=== PATIENT | male | born 1935 | race Caucasian/White ===

== ENCOUNTER → 2016-09-26 | Outpatient (CLI) | payer BC ==
[~2016-09-26] MED LIST: AMLO-110 PO; ASCA500 PO; ASPI325T45 PO; Amlodipine PO; CHOL1000 PO; CLON0.1T12 PO; COENCAP9 PO; Clonidine PO; Fish Oil PO; GABA-112 PO; LISI20TA3 PO; Lisinopril PO; PRAV20TA PO; PRED-301 PO; SULF500T35 PO; Vitamin C PO; Vitamin D PO
--- NOTE | 2016-09-26 12:12 | DIAGNOSTIC IMAGING REPORT ---
C-SPINE ROUTINE 4 OR 5 VIEWS CLINICAL HISTORY: Neck pain. Ankylosing spondylitis. COMPARISON STUDY: No previous studies for comparison. FINDINGS: There is reversal the normal cervical lordosis. There are extensive multilevel degenerative changes with disc space narrowing at the C3-4 through C6-7 levels. There is uncovertebral joint spurring with bilateral foraminal narrowing at the C3-4 through C6-7 levels on the right, and C4-5 through C6-7 levels on the left. No acute fractures are visualized. There are no traumatic subluxations identified. IMPRESSION: Advanced multilevel degenerative changes. Electronically signed by: Luis Vick M.D. 09/26/2016 12:11 PM Dictated Date/Time: 09/26/2016 12:10 PM
== END | disposition home or self-care (01) ==
LOC: C.RAD1850 11:38
PROVIDERS: ATTEND Internal Medicine Rheumatology
DX: M45.9 Ankylosing spondylitis of unspecified sites in spine (principal)

== ENCOUNTER → 2016-09-26 | Outpatient (CLI) | payer BC ==
--- NOTE | 2016-09-26 11:34 | DIAGNOSTIC IMAGING REPORT ---
MRI CERVICAL WITHOUT CONTRAST CLINICAL HISTORY: ANKYLOSING SPONDYLITIS SHOULDER PAIN TECHNIQUE: Sagittal and axial T1, T2 and STIR images were obtained. COMPARISON STUDY: 02/24/2012 There are no suspicious areas of marrow replacement. No intrinsic cervical cord lesions are visualized. C2-3: There is no evidence of disc bulge or focal herniation. There is no spinal or foraminal stenosis. C3-4: There is a minor circumferential disc bulge present. There is no significant spinal stenosis. There is mild bilateral foraminal narrowing C4-5: There is a circumferential disc bulge present. There is mild bilateral foraminal narrowing right more severe than left. There is minimal spinal canal narrowing C5-6 :There is a diffuse or compressive disc bulge. There is bilateral foraminal narrowing. There is no significant spinal stenosis. C6-7: There is right-sided uncovertebral joint spurring with subjacent disc protrusion. There is no significant spinal stenosis. There is minor right-sided foraminal narrowing C7-T1: There is no evidence of significant disc bulge or focal herniation. There is no evidence of spinal or foraminal stenosis. IMPRESSION:Multilevel spondylitic changes as described above. Bilateral foraminal narrowing at the C3-4, C4-5, C5-6 levels. Mild right-sided foraminal narrowing at the C6-7 level. Mild spinal stenosis at the C4-5 level. Electronically signed by: Luis Vick M.D. 09/26/2016 11:32 AM Dictated Date/Time: 09/26/2016 11:26 AM
== END | disposition home or self-care (01) ==
LOC: C.MRI 10:39
PROVIDERS: ATTEND Internal Medicine Rheumatology
DX: M45.2 Ankylosing spondylitis of cervical region (principal); M79.603 Pain in arm, unspecified; Z79.899 Other long term (current) drug therapy

== ENCOUNTER → 2017-02-18 | Day surgery (SDC) | payer BC ==
[2017-01-30 12:10] VITALS: Ht 162.6 cm; Wt 68.2 kg
[~2017-02-18] VITALS: Ht 162.6 cm; Wt 68.2 kg
[~2017-02-18] MED LIST changes: -Amlodipine PO; -Clonidine PO; -Fish Oil PO; +IOPAMIDOL INJ 61% 15 ML VIAL ONE; +LIDOCAINE HCL 1% MPF 5 ML VIAL ONE; -Lisinopril PO; +SODIUM CHLORIDE 0.9% INJ 10 ML VIAL ONE; -Vitamin C PO; -Vitamin D PO
--- NOTE | 2017-02-18 10:40 | History & Physical Bridge - SC ---
H&P Re-Evaluation Bridge Note: I have examined the patient, reviewed the History & Physical and in the interval since the performance of the History & Physical I have noted the following changes of clinical significance: No changes noted
[2017-02-18 11:04] VITALS: TEMP 37.2
--- NOTE | 2017-02-18 11:10 | Discharge Instructions ---
Discharge Instructions Date of Service February 18, 2017. Visit Reason for Visit: Lumbar Spinal Stenosis Discharge Discharge Diagnosis / Problem: right leg pain Discharge Goals Goal(s): Decrease discomfort, Improve function Medications Stopped Medications Name(s): aspirin stopped. last dose on thursday. Activity Recommendations Activity Limitations: resume your previous activity Anesthesia . Post Anesthesia Instructions: If you have had General Anesthesia or IV Sedation: * Do not drive today. * Resume driving when surgeon permits. * Do not make important decisions or sign legal documents today. * Call surgeon for: 1. Temperature elevations greater than 101 degrees F. 2. Uncontrollable pain. 3. Excessive bleeding. 4. Persistent nausea and vomiting. 5. Medication intolerance (nausea, vomiting or rash). * For nausea and vomiting use only clear liquids such as: tea, soda, bouillon until nausea subsides, then gradually increase diet as tolerated. * If you have any concerns or questions, call your surgeon's office. If physician is unavailable and it is an emergency, call 911 or go to the nearest emergency room. . Diet Recommendations Recommended Home Diet: resume previous diet Procedures Procedures Performed: Lumbar Epidural Steroid Injection Pending Studies Studies pending at discharge: no Medical Emergencies . Who to Call and When: Medical Emergencies: If at any time you feel your situation is an emergency, please call 911 immediately. . Non-Emergent Contact Non-Emergency issues call your: Specialist . . "Provider Documentation" section prepared by Martin Greenwood. .
[2017-02-18 11:20] VITALS: BP 184/74; PULSE 60; O2SAT 99
--- NOTE | 2017-02-18 12:14 | OPERATIVE REPORT ---
DATE OF OPERATION: 02/18/2017 PREOPERATIVE DIAGNOSIS: Lumbar spinal stenosis with neurogenic claudication, right L5 radiculopathy greater than left. POSTOPERATIVE DIAGNOSIS: Same. PROCEDURE: Right paramedian L4-L5 interlaminar epidural steroid injection under fluoroscopic guidance. INDICATIONS: The patient is an 82-year-old white male who is known to have severe stenosis at L4-L5 and he presents today for an epidural injection to provide him with relief of recent exacerbation of an L5 radiculopathy down the right leg. CONSENT: Verbal and written consent was obtained from the patient. Risks and benefits were reviewed. Risks include but are not limited to epidural abscess, epidural hematoma, allergic reaction, dural puncture. The patient wishes to proceed. PROCEDURE: The patient was taken back to the special procedures room of the [facility] where he was maintained in a prone position. Backside was cleansed with Betadine x3 and a dry sterile dressing was applied. Fluoroscope was used to identify the L4-L5 interlaminar space. Overlying skin on the right side was anesthetized with 4 mL of lidocaine 1% with a 25 gauge 1.5 inch needle. A 22-gauge 3-1/2 inch Tuohy needle was then directed down towards the intralaminar space. It was advanced under lateral fluoroscopic guidance and loss of resistance was noted at a depth of 6.5 cm. Isovue-300 contrast 1 mL was injected in which demonstrated epidural uptake pattern which spread nicely into the L5-S1 region. He then underwent injection after negative aspiration of 40 mg of Depo-Medrol and 4 mL preservative free sodium chloride. Injection was well tolerated. DISPOSITION: 1. The patient is taken out into the discharge recovery area where he will be discharged home once discharge criteria have been met. 2. Follow up in the [facility] office in 2-4 weeks. I attest to the content of the Intraoperative Record and any orders documented therein. Any exceptio ns are noted below.
== END | disposition home or self-care (01) ==
LOC: X.SURG 09:53
PROVIDERS: ATTEND Physical Medicine & Rehabilitation
DX: M48.06 Spinal stenosis, lumbar region (principal); I73.9 Peripheral vascular disease, unspecified

== ENCOUNTER → 2017-03-13 | Outpatient (CLI) | payer BC ==
[~2017-03-13] MED LIST changes: -IOPAMIDOL INJ 61% 15 ML VIAL ONE; -LIDOCAINE HCL 1% MPF 5 ML VIAL ONE; -SODIUM CHLORIDE 0.9% INJ 10 ML VIAL ONE
--- NOTE | 2017-03-13 15:31 | DIAGNOSTIC IMAGING REPORT ---
LUMBAR SPINE 2 OR 3 VIEWS CLINICAL HISTORY: LUMBAR RADICULOPATHY COMPARISON STUDY: December 27, 2015 FINDINGS: There is a mild scoliosis. There are multilevel degenerative changes present. No acute fractures are visualized. There is a minimal grade 1 spondylolisthesis of L4 and L5. There is no pathologic bowel dilatation. There is mild fecal retention. There are vascular calcifications present. IMPRESSION: Scoliosis and moderate multilevel degenerative change. No acute fractures or traumatic subluxations are visualized. Electronically signed by: Luis Vick M.D. 03/13/2017 3:29 PM Dictated Date/Time: 03/13/2017 3:28 PM
== END ==
LOC: C.RDSM 15:15
PROVIDERS: ATTEND Orthopaedic Surgery
DX: M48.06 Spinal stenosis, lumbar region (principal); M54.16 Radiculopathy, lumbar region; M41.9 Scoliosis, unspecified; M51.36 Other intervertebral disc degeneration, lumbar region

== ENCOUNTER → 2017-03-19 | Outpatient (CLI) | payer BC ==
[2017-03-19 17:38] LABS: BASO % 0.4 %; BASO ABS # 0.03 K/uL (0-0.2); COMPLETE YES; EOS % 0.4 %; HEMATOCRIT 43.2 % (42-52); IG% 0.1 %; LYMPH % 19.5 %; LYMPH ABS # 1.44 K/uL (1.2-3.4); MEAN CELL VOLUME 95.4 fL (80-100); MEAN CORPUSCULAR HGB CONC 33.6 g/dl (32-36); MONO % 7.7 %; NEUT % 71.9 %; PLATELET COUNT 255 K/uL (130-400); RED BLOOD COUNT 4.53 M/uL (4.7-6.1); WHITE BLOOD COUNT 7.39 K/uL (4.8-10.8)
[2017-03-19 19:02] LABS: ALT/SGPT 35 U/L (12-78); AST/SGOT 17 U/L (15-37)
[2017-03-19 19:06] LABS: ALKALINE PHOSPHATASE 48 U/L (45-117)
== END | disposition home or self-care (01) ==
LOC: C.LABBFT 11:22
PROVIDERS: ATTEND Internal Medicine Rheumatology
DX: M45.9 Ankylosing spondylitis of unspecified sites in spine (principal); Z79.899 Other long term (current) drug therapy

== ENCOUNTER → 2017-03-20 | Outpatient (CLI) | payer BC ==
--- NOTE | 2017-03-20 11:36 | DIAGNOSTIC IMAGING REPORT ---
LUMBAR SPINE MRI HISTORY: Pain LUMBAR RADICULOPATHY TECHNIQUE: Multiplanar multisequence MRI of the lumbar spine was performed without the use of contrast. COMPARISON: 06/16/2016 FINDINGS: For the purpose of the report the L5-S1 disc space will be located on axial image of 30. Severe degenerative disc changes throughout. Similar as compared to the prior study. L1-L2: No significant central canal or neural foraminal narrowing. L2-L3: Moderate multifactorial narrowing of spinal canal. Broad-based mild disc herniation. Moderate narrowing left neuroforamina. Findings are similar to the prior study. L3-L4: Mild multifactorial narrowing of the spinal canal. Interval development of an extruded disc fragment posterior to the L4 vertebral body. This potentially originates the L4-L5 disc. This occupies the right lateral recess posterior to L4, as transaxial dimensions of 10 x 5 mm, as well as a linear extent of 1.6 cm. A considerable narrowing of the right neuroforamina at L4-L5 is noted impact upon the right anterior aspect of thecal sac posterior to the L4 vertebral body. L4-L5: Broad-based disc herniation with considerable multifactorial narrowing of spinal canal. This is progressive compared to the prior study. The extruded disc fragment again extends posterior to L4 most likely originating from this disc space level. Moderate narrowing left neuroforamina. L5-S1: Mild broad-based disc herniation similar compared to the prior study. Minimal impact with anterior thecal sac. IMPRESSION: 1. Progressive multifactorial spinal stenosis at L4-L5 compared to the prior study. 2. Extruded disc fragment extending from this disc space level posterior to the right lateral aspect of L4 and occupying the right lateral recess. Dimensions are as noted with considerable compromise of the right neuroforamina at L4-L5 as well as right lateral recess posterior to L4. 3. Moderate multifactorial narrowing of the spinal canal and associated neural foramina at L2-L3, L3-L4, similar to the prior exam 4. Considerable degenerative disc change throughout the entire lumbar region similar as compared to the prior study. Electronically signed by: Keven Gerard M.D. 03/20/2017 11:35 AM Dictated Date/Time: 03/20/2017 11:17 AM
== END | disposition home or self-care (01) ==
LOC: C.MRI 10:22
PROVIDERS: ATTEND Orthopaedic Surgery
DX: M48.06 Spinal stenosis, lumbar region (principal); M54.16 Radiculopathy, lumbar region

== ENCOUNTER → 2017-05-15 | Outpatient (CLI) | payer BC ==
--- NOTE | 2017-05-15 11:00 | DIAGNOSTIC IMAGING REPORT ---
LUMBAR SPINE 2 OR 3 VIEWS CLINICAL HISTORY: Status post laminectomy. COMPARISON STUDY: Lumbar spine 03/13/2017. FINDINGS: Interval placement of posterior pedicle screws and rods at L4-L5 secondary to a posterior decompression and fusion. The hardware appears intact. Mild dextroscoliosis of the lumbar spine persist. No fractures. Severe disc space narrowing at L2-L3 and L3-L4 remains unchanged. Stable indeterminate 6 mm calcification adjacent to the left side of the L2-L3 disc space. The sacrum appears intact. Vascular calcifications are noted. There is also moderate disc space narrowing at L5-S1. IMPRESSION: 1. Interval posterior decompression fusion] at L4-L5 with pedicle screws and rods. The hardware is intact. 2. Scoliosis and multilevel degenerative disease as described above is not significantly changed. 3. Nonspecific 6 mm calcification adjacent to the left side of the L2-L3 disc space. This favors vascular calcification. A ureteral stone could also have a similar appearance but is considered less likely. Electronically signed by: Nhan Forrester M.D. 05/15/2017 10:58 AM Dictated Date/Time: 05/15/2017 10:55 AM
== END | disposition home or self-care (01) ==
LOC: C.RDSM 10:15
PROVIDERS: ATTEND Orthopaedic Surgery
DX: Z98.890 Other specified postprocedural states (principal)

== ENCOUNTER → 2017-06-25 | Outpatient (CLI) | payer BC ==
--- NOTE | 2017-06-25 16:12 | DIAGNOSTIC IMAGING REPORT ---
R KNEE 3 VIEWS CLINICAL HISTORY: RIGHT MEDIAL KNEE PAIN COMPARISON STUDY: None. FINDINGS: Mild cartilage space narrowing within the medial and lateral compartment of the knees. No significant knee effusion. Tiny marginal osteophytes at the patella. Vascular calcifications. No fracture or dislocation. IMPRESSION: Mild osteoarthritis. No fractures within the right knee. Electronically signed by: Nhan Forrester M.D. 06/25/2017 4:10 PM Dictated Date/Time: 06/25/2017 4:10 PM
== END | disposition home or self-care (01) ==
LOC: C.RDSM 11:52
PROVIDERS: ATTEND Family Medicine
DX: M25.561 Pain in right knee (principal)

== ENCOUNTER → 2017-07-31 | Outpatient (CLI) | payer BC ==
--- NOTE | 2017-07-31 11:55 | DIAGNOSTIC IMAGING REPORT ---
LUMBAR SPINE 2 OR 3 VIEWS CLINICAL HISTORY: LUMBAR SPINAL STENOSIS pain COMPARISON STUDY: 05/15/2017 FINDINGS: Stable lumbar scoliosis. Stable postoperative changes consistent with laminectomy and fusion at L4-L5. No evidence for new or interval process. The small calcification previously described left lateral L2-L3 appears to be stable and most likely secondary to vascular calcification. IMPRESSION: Stable exam including unchanging degenerative and postoperative change. The above report was generated using voice recognition software. It may contain grammatical, syntax or spelling errors. Electronically signed by: Keven Gerard M.D. 07/31/2017 11:53 AM Dictated Date/Time: 07/31/2017 11:52 AM
== END | disposition home or self-care (01) ==
LOC: C.RDSM 16:43
PROVIDERS: ATTEND Orthopaedic Surgery
DX: M48.061 Spinal stenosis, lumbar region without neurogenic claudication (principal)

== ENCOUNTER → 2017-08-26 | Outpatient (CLI) | payer BC | END | disposition home or self-care (01) | LOC: C.LABBFT 10:29 | PROVIDERS: ATTEND Internal Medicine Rheumatology | DX: M35.3 Polymyalgia rheumatica (principal); M25.511 Pain in right shoulder ==

== ENCOUNTER → 2017-09-02 | Outpatient (CLI) | payer BC | END | disposition home or self-care (01) | LOC: C.LABBFT 14:57 | PROVIDERS: ATTEND Internal Medicine Rheumatology | DX: M35.3 Polymyalgia rheumatica (principal); R20.0 Anesthesia of skin ==

== ENCOUNTER → 2017-09-24 | Outpatient (CLI) | payer BC ==
[2017-09-24 12:35] LABS: BASO % 0.4 %; BASO ABS # 0.03 K/uL (0-0.2); EOS % 1.3 %; HEMATOCRIT 43.5 % (42-52); HEMOGLOBIN 14.6 g/dL (14.0-18.0); IG# 0.01 K/uL (0.00-0.02); LYMPH % 23.9 %; LYMPH ABS # 1.82 K/uL (1.2-3.4); MEAN CELL VOLUME 91.4 fL (80-100); MEAN CORPUSCULAR HEMOGLOBIN 30.7 pg (25-34); MEAN CORPUSCULAR HGB CONC 33.6 g/dl (32-36); MEAN PLATELET VOLUME 9.1 fL (7.4-10.4); MONO ABS # 0.61 K/uL (0.11-0.59); NEUT % 66.3 %; NEUT ABS # 5.03 K/uL (1.4-6.5); PLATELET COUNT 241 K/uL (130-400); RED CELL DISTRIBUTION WIDTH CV 17.7 % (11.5-14.5); RED CELL DISTRIBUTION WIDTH SD 59.9 fL (36.4-46.3)
[2017-09-24 13:35] LABS: ALBUMIN 3.4 gm/dl (3.4-5.0); ALT/SGPT 27 U/L (12-78); AST/SGOT 11 U/L (15-37); BLOOD UREA NITROGEN 28 mg/dl (7-18); CALCIUM 8.9 mg/dl (8.5-10.1); CARBON DIOXIDE 29 mmol/L (21-32); CREATININE 1.29 mg/dl (0.60-1.40); GLUCOSE 99 mg/dl (70-99); POTASSIUM 4.1 mmol/L (3.5-5.1); SODIUM 137 mmol/L (136-145)
[2017-09-24 13:38] LABS: ALKALINE PHOSPHATASE 47 U/L (45-117); CHOLESTEROL 149 mg/dl (0-200); LDL CHOLESTEROL CALCULATED 58 mg/dl; TOTAL PROTEIN 6.6 gm/dl (6.4-8.2)
== END | disposition home or self-care (01) ==
LOC: C.LABBFT 07:33
PROVIDERS: ATTEND Internal Medicine
DX: I10 Essential (primary) hypertension (principal); M45.9 Ankylosing spondylitis of unspecified sites in spine; M35.3 Polymyalgia rheumatica; G56.02 Carpal tunnel syndrome, left upper limb; R73.01 Impaired fasting glucose; E78.5 Hyperlipidemia, unspecified

== ENCOUNTER → 2017-10-06 | Outpatient (CLI) | payer BC ==
[2017-10-06 16:48] LABS: BASO % 0.2 %; BASO ABS # 0.02 K/uL (0-0.2); HEMATOCRIT 41.7 % (42-52); HEMOGLOBIN 14.2 g/dL (14.0-18.0); IG# 0.02 K/uL (0.00-0.02); LYMPH % 13.4 %; LYMPH ABS # 1.24 K/uL (1.2-3.4); MEAN CELL VOLUME 91.2 fL (80-100); MEAN CORPUSCULAR HEMOGLOBIN 31.1 pg (25-34); MEAN CORPUSCULAR HGB CONC 34.1 g/dl (32-36); MEAN PLATELET VOLUME 9.1 fL (7.4-10.4); MONO % 8.1 %; MONO ABS # 0.75 K/uL (0.11-0.59); NEUT % 78.1 %; NEUT ABS # 7.25 K/uL (1.4-6.5); PLATELET COUNT 278 K/uL (130-400); RED CELL DISTRIBUTION WIDTH CV 16.7 % (11.5-14.5); RED CELL DISTRIBUTION WIDTH SD 55.7 fL (36.4-46.3); WHITE BLOOD COUNT 9.28 K/uL (4.8-10.8)
[2017-10-06 17:19] LABS: ALBUMIN 3.7 gm/dl (3.4-5.0); ALKALINE PHOSPHATASE 55 U/L (45-117); ALT/SGPT 39 U/L (12-78); AST/SGOT 22 U/L (15-37); CREATININE 1.78 mg/dl (0.60-1.40); TOTAL PROTEIN 6.7 gm/dl (6.4-8.2)
== END | disposition home or self-care (01) ==
LOC: C.LABBFT 14:48
PROVIDERS: ATTEND Internal Medicine Rheumatology
DX: M45.9 Ankylosing spondylitis of unspecified sites in spine (principal); G56.02 Carpal tunnel syndrome, left upper limb; M35.3 Polymyalgia rheumatica

== ENCOUNTER → 2017-12-07 | Outpatient (CLI) | payer BC ==
[2017-12-07 16:50] LABS: BASO % 0.3 %; BASO ABS # 0.03 K/uL (0-0.2); EOS % 0.1 %; EOS ABS # 0.01 K/uL (0-0.5); HEMOGLOBIN 14.1 g/dL (14.0-18.0); IG# 0.04 K/uL (0.00-0.02); LYMPH % 16.3 %; LYMPH ABS # 1.62 K/uL (1.2-3.4); MEAN CELL VOLUME 96.1 fL (80-100); MEAN CORPUSCULAR HEMOGLOBIN 32.3 pg (25-34); MEAN CORPUSCULAR HGB CONC 33.6 g/dl (32-36); MEAN PLATELET VOLUME 9.1 fL (7.4-10.4); MONO % 6.1 %; MONO ABS # 0.61 K/uL (0.11-0.59); NEUT % 76.8 %; NEUT ABS # 7.62 K/uL (1.4-6.5); PLATELET COUNT 270 K/uL (130-400); RED CELL DISTRIBUTION WIDTH SD 49.8 fL (36.4-46.3); WHITE BLOOD COUNT 9.93 K/uL (4.8-10.8)
[2017-12-07 17:05] LABS: ALBUMIN 3.4 gm/dl (3.4-5.0); ALT/SGPT 26 U/L (12-78); CREATININE 1.47 mg/dl (0.60-1.40)
[2017-12-07 17:08] LABS: ALKALINE PHOSPHATASE 51 U/L (45-117); AST/SGOT 19 U/L (15-37); TOTAL PROTEIN 6.2 gm/dl (6.4-8.2)
== END | disposition home or self-care (01) ==
LOC: C.LABBFT 13:25
PROVIDERS: ATTEND Internal Medicine Rheumatology
DX: M25.50 Pain in unspecified joint (principal); M45.9 Ankylosing spondylitis of unspecified sites in spine; M35.3 Polymyalgia rheumatica

== ENCOUNTER → 2017-12-11 | Outpatient (CLI) | payer BC ==
--- NOTE | 2017-12-11 09:45 | DIAGNOSTIC IMAGING REPORT ---
LUMBAR SPINE 2 OR 3 VIEWS CLINICAL HISTORY: Postop lumbar spine surgery. COMPARISON STUDY: 07/31/2017 FINDINGS: There is a mild lumbar dextroscoliosis. There are postsurgical changes of a spinal fusion at the L4-5 level. There are multilevel degenerative changes with moderate disc space narrowing at the L2-3, L3-4, and L5-S1 levels. No acute fractures or subluxations are visualized. There is no pathologic bowel dilatation. IMPRESSION: No significant change from the prior study. Stable degenerative and postsurgical changes Electronically signed by: Luis Vick M.D. 12/11/2017 9:44 AM Dictated Date/Time: 12/11/2017 9:43 AM
== END | disposition home or self-care (01) ==
LOC: C.RDSM 10:28
PROVIDERS: ATTEND Orthopaedic Surgery
DX: Z98.890 Other specified postprocedural states (principal)

== ENCOUNTER → 2018-01-05 | Outpatient (CLI) | payer BC ==
[~2018-01-05] MED LIST changes: +ASPECOTC PO; -ASPI325T45 PO
== END | disposition home or self-care (01) ==
LOC: C.LABBFT 10:18
PROVIDERS: ATTEND Internal Medicine Rheumatology
DX: M45.9 Ankylosing spondylitis of unspecified sites in spine (principal); M35.3 Polymyalgia rheumatica; Z79.899 Other long term (current) drug therapy

== ENCOUNTER → 2018-01-21 | Outpatient (CLI) | payer BC ==
[2018-01-21 12:35] LABS: CREATININE 1.29 mg/dl (0.60-1.40)
== END | disposition home or self-care (01) ==
LOC: C.LABBFT 09:16
PROVIDERS: ATTEND Physical Medicine & Rehabilitation
DX: M54.16 Radiculopathy, lumbar region (principal)

== ENCOUNTER → 2018-01-27 | Outpatient (CLI) | payer BC ==
[~2018-01-27] MED LIST changes: +GADAVIST IV PRN
--- NOTE | 2018-01-27 11:25 | DIAGNOSTIC IMAGING REPORT ---
LUMBAR SPINE MRI WITH AND WITHOUT CONTRAST HISTORY: RT LUMBAR RADICULOPATHY TECHNIQUE: Multiplanar multisequence MRI of the lumbar spine was performed both before and after the intravenous administration of contrast. COMPARISON: Lumbar spine MRI 03/20/2017. FINDINGS: For the purpose of the report the L5-S1 disc space will be located on axial image . No fracture or subluxation within the lumbar spine. Interval posterior decompression and fusion at L4-L5 with pedicle screws and rods. Severe disc space narrowing at L2-L3, L3-L4, and L5-S1, unchanged. Mild disc space narrowing at L1-L2 and L4-L5 is also unchanged. The conus terminates at the L1 level. Endplate edema at L2-L3 consistent with long-standing degenerative change. This has slightly progressed. Retroperitoneal soft tissues are unremarkable. Subcutaneous and deep soft tissue edema within the lower lumbar spine. This is likely related to the postoperative change. No abnormal enhancement. T11-T12: Broad-based posterior disc bulge resulting in mild central canal narrowing. No neural foraminal narrowing. T12-L1: No central canal or neural foraminal narrowing. L1-L2: No significant central canal or neural foraminal narrowing. L2-L3: Broad-based posterior disc bulge and ligamentum and facet hypertrophy resulting in moderate central canal and mild bilateral neural foraminal narrowing. This is similar to the prior study. L3-L4: Small broad-based posterior disc bulge with ligamentum and facet hypertrophy resulting in mild central canal and mild bilateral neural foraminal narrowing. This also remains unchanged. L4-L5: Interval posterior decompression. No central canal narrowing. Small broad-based posterior disc bulge with facet hypertrophy results in moderate right and mild left neural foraminal narrowing. L5-S1: Broad-based posterior disc bulge without significant central canal narrowing. There is moderate bilateral neural foraminal narrowing, unchanged. IMPRESSION: 1. Interval posterior decompression and fusion at L4-L5. There is no significant central canal narrowing at this level. 2. The remaining multilevel degenerative changes as described above are not significantly changed. This is most pronounced at the L2-L3 and L3-L4 levels. Electronically signed by: Nhan Forrester M.D. 01/27/2018 11:24 AM Dictated Date/Time: 01/27/2018 11:07 AM
== END | disposition home or self-care (01) ==
LOC: C.MRI 09:41
PROVIDERS: ATTEND Physical Medicine & Rehabilitation
DX: M54.16 Radiculopathy, lumbar region (principal); M51.37 Other intervertebral disc degeneration, lumbosacral region

== ENCOUNTER → 2018-04-16 | Outpatient (CLI) | payer BC ==
[~2018-04-16] MED LIST changes: -AMLO-110 PO; +AMLO5TAB3 PO; -COENCAP9 PO; -GABA-112 PO; +GABA-113 PO; -GADAVIST IV PRN; -PRAV20TA PO; +PRD/1 PO; -PRED-301 PO
[2018-04-16 14:44] LABS: BASO % 0.4 %; BASO ABS # 0.03 K/uL (0-0.2); EOS % 0.3 %; EOS ABS # 0.02 K/uL (0-0.5); HEMATOCRIT 42.2 % (42-52); HEMOGLOBIN 14.4 g/dL (14.0-18.0); IG# 0.01 K/uL (0.00-0.02); LYMPH % 26.4 %; LYMPH ABS # 1.87 K/uL (1.2-3.4); MEAN CELL VOLUME 93.8 fL (80-100); MEAN CORPUSCULAR HGB CONC 34.1 g/dl (32-36); MEAN PLATELET VOLUME 9.2 fL (7.4-10.4); MONO % 8.8 %; MONO ABS # 0.62 K/uL (0.11-0.59); NEUT ABS # 4.53 K/uL (1.4-6.5); PLATELET COUNT 263 K/uL (130-400); RED CELL DISTRIBUTION WIDTH CV 13.9 % (11.5-14.5); RED CELL DISTRIBUTION WIDTH SD 47.6 fL (36.4-46.3); WHITE BLOOD COUNT 7.08 K/uL (4.8-10.8)
[2018-04-16 15:48] LABS: BLOOD UREA NITROGEN 25 mg/dl (7-18); CALCIUM 9.1 mg/dl (8.5-10.1); CARBON DIOXIDE 27 mmol/L (21-32); CREATININE 1.37 mg/dl (0.60-1.40); GLUCOSE 88 mg/dl (70-99); POTASSIUM 4.3 mmol/L (3.5-5.1); SODIUM 134 mmol/L (136-145)
== END | disposition home or self-care (01) ==
LOC: C.LAB1850 13:45
PROVIDERS: ATTEND Internal Medicine
DX: R31.9 Hematuria, unspecified (principal)

== ENCOUNTER → 2018-04-20 | Outpatient (CLI) | payer BC | END | disposition home or self-care (01) | LOC: C.LABSPEC 13:17 | PROVIDERS: ATTEND Urology | DX: R31.9 Hematuria, unspecified (principal) ==

== ENCOUNTER → 2018-04-20 | Outpatient (CLI) | payer BC ==
[~2018-04-20] MED LIST changes: +OPTIRAY 320 IV PRN
--- NOTE | 2018-04-20 14:26 | DIAGNOSTIC IMAGING REPORT ---
CT UROGRAM CLINICAL HISTORY: Hematuria. COMPARISON STUDY: Abdominal CT dated 05/07/2015. TECHNIQUE: Before and following the IV administration of 120 cc of Optiray 320, CT urogram of the abdomen and pelvis is performed from the lung bases to the proximal femora. Images are reviewed in the axial, sagittal, and coronal planes. IV contrast was administered without complication. A dose lowering technique was utilized adhering to the principles of ALARA. CT DOSE: 653.41 mGy.cm FINDINGS: Lung bases: The heart is top normal in size and without pericardial effusion. The coronary arteries are densely calcified. The lung bases are clear noting bibasilar scarring/atelectasis. Liver: The contrast-enhanced liver is normal in size, contour, and attenuation. There is no intrahepatic biliary ductal dilatation. The hepatic veins and portal veins are patent. Gallbladder: Unremarkable. Spleen: Normal in size and attenuation. Pancreas: Unremarkable. Adrenal glands: Unremarkable. Kidneys and ureters: The contrast enhanced kidneys demonstrate cortical atrophy and are without hydronephrosis. There are no renal calculi identified on the unenhanced images. The kidneys enhance and excrete symmetrically. There is no enhancing renal cortical mass lesion identified. There is no evidence of urothelial lesion within the renal pelvis bilaterally or along the course of either ureter. Abdominal vasculature: The abdominal aorta is normal in course and caliber noting advanced atherosclerotic calcification. Bowel: There is moderate constipation. No bowel obstruction is seen. There is mild to moderate colonic diverticulosis without CT evidence of acute diverticulitis. The appendix is well-visualized and normal. Peritoneum: There is no intraperitoneal free air or abdominal ascites. There is a fat-containing umbilical hernia. Lymphadenopathy: None. Pelvic viscera: The prostate gland is markedly enlarged and heterogeneous, measuring 6.9 cm in transverse diameter. There is median lobe hypertrophy. The bladder wall is mildly thickened and trabeculated indicating chronic outlet obstruction. Skeletal structures: The skeletal structures are osteopenic. There is moderate lumbosacral spondylosis. Postlaminectomy change is seen at L4-L5. No lytic or blastic lesions are seen. A bone graft donor site is noted in the right ileum. IMPRESSION: 1. Unremarkable assessment of the kidneys and ureters. 2. Marked prostatomegaly with evidence of chronic bladder outlet obstruction. 3. Moderate to severe constipation. 4. Additional findings as above. Electronically signed by: James Odom M.D. 04/20/2018 2:24 PM Dictated Date/Time: 04/20/2018 2:18 PM
== END | disposition home or self-care (01) ==
LOC: C.CTS 13:44
PROVIDERS: ATTEND Internal Medicine
DX: N40.1 Benign prostatic hyperplasia with lower urinary tract symptoms (principal)

== ENCOUNTER → 2018-05-07 | Outpatient (CLI) | payer BC ==
[~2018-05-07] MED LIST changes: -OPTIRAY 320 IV PRN
--- NOTE | 2018-05-07 15:43 | DIAGNOSTIC IMAGING REPORT ---
MRI OF THE BRAIN COMBO INTERNAL AUDITORY CANAL PROTOCOL CLINICAL HISTORY: Right-sided hearing loss. COMPARISON STUDY: MRI of the brain dated 04/29/2014. TECHNIQUE: MRI of the brain was performed utilizing various T1 and T2-weighted sequences in the axial, sagittal, and coronal planes. Contrast-enhanced sequences were acquired following the administration of 7 cc of Gadavist. Additional high-resolution imaging was performed through the skull base both pre and post contrast to assess the internal auditory canals. FINDINGS: Brain parenchyma: There are age-related involutional changes noting mild to moderate patchy subcortical and periventricular microangiopathic disease. There is no hemorrhage or mass effect. There is no restricted diffusion to suggest acute ischemia. No enhancing mass lesion is identified on the postcontrast images. Montemayor-white matter differentiation is preserved. No extra-axial fluid collection is seen. The cerebellar tonsils are normal in configuration. Ventricles, sulci, and cisterns: Prominent secondary to involutional change. Internal artery canals: There is no enhancing lesion identified within the cerebellopontine angle bilaterally. No mass or abnormal enhancement is seen along the course of the internal artery canals. The middle ear structures are normal as imaged. Pituitary and sella: Unremarkable. Intracranial vasculature: Normal flow voids are maintained at the skull base. Orbits: The bony orbits are grossly intact. Orbital contents are normal in appearance noting bilateral ocular lens implants. Sinuses and mastoids: Clear. Calvarium: Unremarkable. Cervical cord: Partially visualized cervical spinal cord is normal in morphology and signal intensity. IMPRESSION: 1. No acute intracranial abnormality. 2. Unremarkable MRI assessment of the internal auditory canals. Electronically signed by: James Odom M.D. 05/07/2018 3:41 PM Dictated Date/Time: 05/07/2018 3:35 PM
== END | disposition home or self-care (01) ==
LOC: C.MRI 14:04
DX: H91.21 Sudden idiopathic hearing loss, right ear (principal)

== ENCOUNTER → 2018-05-12 | Outpatient (CLI) | payer BC | END | disposition home or self-care (01) | LOC: C.LABBFT 13:54 | PROVIDERS: ATTEND Internal Medicine Rheumatology | DX: H91.90 Unspecified hearing loss, unspecified ear (principal) ==

== ENCOUNTER → 2018-05-13 | Outpatient (CLI) | payer BC ==
[2018-05-13 18:09] LABS: BLOOD UREA NITROGEN 20 mg/dl (7-18); CALCIUM 9.2 mg/dl (8.5-10.1); CARBON DIOXIDE 26 mmol/L (21-32); CREATININE 1.27 mg/dl (0.60-1.40); GLUCOSE 85 mg/dl (70-99); POTASSIUM 3.9 mmol/L (3.5-5.1); SODIUM 137 mmol/L (136-145)
== END | disposition home or self-care (01) ==
LOC: C.LABBFT 10:55
DX: E87.1 Hypo-osmolality and hyponatremia (principal); H91.21 Sudden idiopathic hearing loss, right ear

== ENCOUNTER 2019-11-21 14:00 | Observation (INO) ==
[2019-11-21 14:24] LABS: Basophils # (auto) 0.03 K/uL (0-0.2); Basophils % (auto) 0.3 %; Hematocrit (blood only) 42.9 % (42-52); Hemoglobin 14.9 g/dL (14.0-18.0); Immature Granulocytes # (auto) 0.03 K/uL (0.00-0.02); Immature Granulocytes % (auto) 0.3 %; Lymphocytes # (auto) 0.96 K/uL (1.2-3.4); Lymphocytes % (auto) 8.2 %; Mean Corpuscular Hemoglobin 32.5 pg (25-34); Mean Corpuscular Hgb Conc 34.7 g/dL (32-36); Mean Corpuscular Volume 93.7 fL (80-100); Mean Platelet Volume 8.8 fL (7.4-10.4); Monocytes # (auto) 0.96 K/uL (0.11-0.59); Monocytes % (auto) 8.2 %; Neutrophils # (auto) 9.71 K/uL (1.4-6.5); Platelet Count 286 K/uL (130-400); RDW Coefficient of Variation 13.2 % (11.5-14.5); RDW Standard Deviation 45.4 fL (36.4-46.3); Red Blood Count 4.58 M/uL (4.7-6.1); White Blood Count 11.69 K/uL (4.8-10.8)
--- NOTE | 2019-11-21 14:24 | XRay Report ---
XR chest 1V portable CLINICAL HISTORY: 84 years-old Male presenting with Chest Pain. TECHNIQUE: Portable upright AP view of the chest was obtained. COMPARISON: 10/25/2019. FINDINGS: Atherosclerosis of the aortic arch. Cardiac silhouette normal in size. The right hilum is not signifi cantly prominent on the current exam. Minimal left basilar opacities. No focal opacity at the right l kristy base. No pleural effusion or pneumothorax. Degenerative changes of the thoracic spine. Upper abdo men normal. IMPRESSION: 1. Resolution of prior right basilar opacity. Minimal left basilar opacities likely atelectasis or s carring. No convincing evidence of acute cardiopulmonary disease. ACT 112: Negative or not required by law. Electronically signed by: Eric Benítez M.D. 11/21/2019 2:23 PM
[2019-11-21 14:34] LABS: INR 1.1 (0.9-1.1); Partial Thromboplastin Ratio 1.1; Partial Thromboplastin Time 28.5 Seconds (21.0-31.0); Prothrombin Time 11.4 Seconds (9.0-12.0)
[2019-11-21] MEDS ORDERED: ASPIRIN CHEW 324 MG PO STA (14:40)
[2019-11-21 14:41] LABS: Alanine Aminotransferase 22 U/L (12-78); Albumin Level 3.8 gm/dl (3.4-5.0); Aspartate Aminotransferase 16 U/L (15-37); BUN Creatinine Ratio 17.8 (10-20); Blood Urea Nitrogen 33 mg/dl (7-18); Calcium 9.4 mg/dl (8.5-10.1); Carbon Dioxide 22 mmol/L (21-32); Chloride 97 mmol/L (98-107); Creatinine Clr Calc Pharmacy 26.7 ml/min; Est GFR (African American) 37.9; Est GFR (Non-African American) 32.7; Glucose 162 mg/dl (70-99); Lipase 150 U/L (73-393); Potassium 3.8 mmol/L (3.5-5.1); Sodium 131 mmol/L (136-145)
[2019-11-21 14:46] LABS: Albumin Globulin Ratio 1.2 (0.9-2); Alkaline Phosphatase 62 U/L (45-117); Bilirubin,Total 0.4 mg/dl (0.2-1); Creatine Kinase 124 U/L (39-308); Creatine Kinase MB 3.5 ng/ml (0.5-3.6); Globulin 3.2 gm/dl (2.5-4.0); Troponin I < 0.015 ng/ml (0-0.045)
--- NOTE | 2019-11-21 15:52 | Electrocardiogram Report ---
Test Reason : Blood Pressure : / mmHG Vent. Rate : 094 BPM Atrial Rate : 094 BPM P-R Int : 238 ms QRS Dur : 156 ms QT Int : 380 ms P-R-T Axes : 077 -47 109 degrees QTc Int : 475 ms Sinus rhythm with 1st degree A-V block with Premature supraventricular complexes Left axis deviation Left bundle branch block Abnormal ECG When compared with ECG of 14-MAR-2019 10:48, Premature supraventricular complexes are now Present Confirmed by Farhan Sharma ([id number]) on 11/21/2019 3:52:15 PM Referred By: Confirmed By:Farhan Sharma
--- NOTE | 2019-11-21 16:45 | History & Physical Report ---
Date of Service November 21, 2019 Assessment & Plan (1) Chest pain, precordial: Admit to PCU on tele for OBSV, Vital signs Q4 hr, Troponin x 3 to r/o acute coronary sy., TTE Consider stress test tomorrow if trops neg. 03/11/2019 Stress test : Conclusions: 1. No scintigraphic evidence of a prior myocardial infarction or stress-induced myocardial ischemia. 2. No Lexiscan induced chest pain. 3. No Lexiscan induced EKG changes. 4. Normal left ventricular systolic function without wall motion abnormality. Left ventricular ejection fraction is 50%. DVT ppx Heparin 5000 units Q12 hr Full code (2) Hyponatremia: Sodium level fluctuates since 03/2018. Not clear origin of hyponatremia, Follow up [facility]EN[facility]. Present on Admission?: Yes (3) Elevated serum creatinine: Cr fluctuates as well, it ranges from 1.2-1.7. Today Cr has definitely above the baseline 1.86. Avoid nephrotoxic agents. Continue monitoring. Consider consulting nephrology. Present on Admission?: Yes (4) Dyslipidemia: Lipid panel pending. Continue Pravastatine 20 mg PO Qhs. Present on Admission?: Yes (5) Cervical radiculopathy: C spine XR pending. Depending on the result consider consulting ortho. Present on Admission?: Yes (6) Hypertension: Continue home meds:Maxzide-25 mg PO QOD, Lisinopril 20 mg PO Qhs, amlodipine 5 mg PO Qam, Asa 325 mg PO QOD, clonidine 0.1 mg PO Qhs. Present on Admission?: Yes History of Present Illness Chief Complaint: chest pain Primary Care Provider: Sidney Romano MD The patient is an 84 year old male w/PMHx of HTN, hyperlipidemia, impaired fasting glucose, peripheral neuropathy, BPH who presents to the emergency department with complaints of three episodes of chest tightness beginning this morning. The patient states that he woke up this morning with left shoulder pain and he knew from the before that he has a rotator cuff injury. He notes that he became shaky while eating breakfast, and he reports that he then developed chest tightness. The patient states that his chest tightness radiated up into his shoulders, neck, and jaw. He notes that his tightness did not radiate down his arms. He reports that his symptoms lasted for 10 minutes before resolving. The patient states that he went to the [facility] after the episode, but he notes that he did not have any chest tightness while using the machines. He reports that he then had a breathing test at the hospital, and he states that he had another episode of chest tightness. He notes that he had a third episode of chest tightness during lunch, and he reports that this episode was worse than the first two.He denies fever, chills, chest pain at the present time, sweating, syncope,near syncope, leg swelling, fever, and vomiting. The patient states that he had pneumonia a few weeks ago, but he notes that he does not have a previous history of heart problems. He reports that he is a former smoker, but he reports that he quit in 1969.Labs are reviewed:WBC 11.69,HgB14.9,Hct 42.9,Plt 286,Left shift 9.71,PT 11.4,INR 1.1,APTT 28.5, Na 131, K3.8, Cl 97, BUN 33, Cr 1.86 ( baseline 1.2-1.7), trop 0.015, TSH 5.030 elevated.Free T4 pending.CXR:Resolution of prior right basilar opacity. Minimal left basilar opacities likely atelectasis or scarring. No convincing evidence of acute cardiopulmonary disease.The decision was made to admit pt for chest pain atypical v acute coronary sy. Allergies Allergy/AdvReac Type Severity Reaction Status Date / Time No Known Drug Allergies Allergy Unknown NONE Verified 11/21/19 15:34 Home Medications Home Medications Medication Instructions Recorded Confirmed Type amlodipine 5 mg PO QAM 02/28/19 11/21/19 History aspirin 325 mg PO Q OTHER DAY 02/28/19 11/21/19 History cholecalciferol (vitamin D3) 2,000 unit PO DAILY 02/28/19 11/21/19 History [Vitamin D3] sulfasalazine 1,000 mg PO BID 02/28/19 11/21/19 History triamterene-hydrochlorothiazid 1 tab PO Q OTHER DAY 02/28/19 11/21/19 History [Maxzide-25mg] clonidine HCl 0.1 mg tablet 0.1 mg PO HS #90 tab 05/02/19 11/21/19 Rx pravastatin 20 mg tablet 20 mg PO HS #90 tab 05/02/19 11/21/19 Rx lisinopril 20 mg tablet 20 mg PO QAM #90 tab 05/30/19 11/21/19 Rx gabapentin 300 mg capsule 300 mg PO BID #180 cap 09/26/19 11/21/19 Rx ascorbic acid (vitamin C) 1 g PO DAILY 11/21/19 11/21/19 History Past Med/Surg History Medical History Carotid artery stenosis (Acute) NO CHANGES OVER LAST 3-4 CHECKS Enlarged prostate HX BX'S X 3 History of anesthesia reaction BLOATED, COULDN'T EAT, VOMITING - FOLLOWING LUMBAR FUSION ([facility] 2 YR AGO) - EXTENDED HOSPITAL STAY FOR Hypertension (Acute) Neuropathy WITH BALANCING PROBLEMS Pneumonia Polymyalgia rheumatica (Acute) 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 (Acute) FALL OF 2017/AUDIOLOGY VISIT...HEARING AIDE LEFT Tremor (Acute) Surgical History History of colonoscopy History of hernia surgery DOUBLE History of lumbar fusion WITH LAMINECTOMY History of lumbar laminectomy Family History Father Heart disease Hypertension Coronary arteriosclerosis Abdominal aortic aneurysm Mother Hypertension Stroke Sister Stroke Intracranial hemorrhage Family/Other Stroke Denies family history of Ovarian cancer Prostate cancer Diabetes Alzheimer disease Crohn's disease Dementia Depression Myocardial infarction Breast cancer Lung cancer Colorectal cancer Asthma Social History Preferred Language: Frisian Communication Ability: Effective Visual Impairment: Limited Hearing Ability: Use of Hearing Aid Decision Support Analyst Required: No Beliefs That Will Affect Care: None marital status: Current Living Situation: Spouse current occupational status: retired Other Information That Helps Us Care for You: No Feels Safe at Home: Yes Safety Concerns: Feels Safe At This Time Smoking Status: Never smoker Tobacco Type: cigarettes ; Hx Alcohol Use: No Hx Substance Use: No Physical Activity Frequency: Does not Exercise Review of Systems Review of Systems: All systems reviewed & are unremarkable except as noted in HPI & below Physical Exam Constitutional: WD/WN, vitals as above well developed Eyes: PERRL, conjunctivae normal, anicteric sclerae ENMT: external ear and nose normal, oropharynx normal Neck: trachea midline, no thyromegaly Respiratory: normal respiratory effort, lungs clear to auscultation Cardiovascular: RRR, no murmur, no edema Gastrointestinal (Abdomen): normal bowel sounds, soft, nontender, no hepatosplenomegaly Musculoskeletal: no cyanosis or clubbing, extremities motor strength 5/5 Skin: no rashes, warm and dry Neurologic: patellar DTR's 2+ bilat, sensation intact Psychiatric: A+Ox3, euthymic affect Lymphatic: no cervical or axillary lymphadenopathy Results & Data Vital Signs (Past 12 Hours) Vital Signs Temp Pulse Pulse Resp BP BP Pulse Ox 11/21/19 15:00 83 19 129/59 L 96 11/21/19 14:49 96 H 27 H 116/61 95 11/21/19 14:45 87 26 H 116/61 95 11/21/19 14:03 36.6 C 101 H 16 134/63 96 Code Status & VTE Plan Code Status Full Code VTE Prophylaxis Plan VTE Prophylaxis will be ordered: Yes PG Care Time/CCT Total # of Minutes Spent Total Time Spent with Patient: Total time spent is greater than 50% in coordination of care (as documented) at patient's floor/unit and/or counseling patient: Coding Level of Care Code 61549 Initial Inpt Care Lvl 3 Diagnoses Chest pain, precordial R07.2 Hyponatremia E87.1 Elevated serum creatinine R79.89 Dyslipidemia E78.5 Cervical radiculopathy M54.12 Hypertension I10
[2019-11-21] MEDS ORDERED: NITROGLYCERIN SL 0.4 MG/TAB TAB SL PRN (17:42)
[2019-11-21] MEDS ORDERED: MoRPHine SULFATE 2 MG/ML CARP IV PRN (17:42)
[2019-11-21] MEDS ORDERED: ACETAMINOPHEN 325 MG TAB PO PRN (17:42)
[2019-11-21] MEDS ORDERED: POLYETHYLENE (MIRALAX) 17 GM PACK PO PRN (17:42)
[2019-11-21] MEDS ORDERED: ONDANSETRON INJ 2 MG/ML 2 ML VIAL IV PRN (17:42)
[2019-11-21] MEDS ORDERED: ALUMINUM/MAGNESIUM SUSP 30 ML UDC PO PRN (17:42)
[2019-11-21] MEDS ORDERED: MAGNESIUM HYDROXIDE SUSP 30 ML UDC PO PRN (17:42)
[2019-11-21 18:35] LABS: Thyroid Stimulating Hormone 5.03 uIu/ml (0.300-4.500)
[2019-11-21] MEDS: NITROGLYCERIN 2% OINTMENT 30GM TUBE EXT SCH ×2 (19:17→23:23)
[2019-11-21] MEDS: sulfaSALAzine 500 MG TABLET PO SCH (20:20)
[2019-11-21] MEDS: GABAPENTIN 300 MG CAP PO SCH (20:20)
[2019-11-21] MEDS: HEPARIN SOD 5,000 UNIT/0.5 ML VIAL SQ SCH (20:21)
[2019-11-21] MEDS ORDERED: PRAVASTATIN SOD 20 MG TAB PO SCH (21:00)
[2019-11-21] MEDS ORDERED: cloNIDine HCL 0.1 MG TAB PO SCH (21:00)
--- NOTE | 2019-11-21 22:15 | Emergency Department Note ---
Entered by Jeronimo Alexis acting as a scribe for History of Present Illness General Chief complaint: Cardiac Assessment Stated complaint: SOB,CHEST TIGHTNESS,JAW PAIN Time Seen by Provider: 11/21/19 14:31 Source: patient History of Present Illness Onset (ago): day(s) (this morning) Location: chest Radiation: neck and other (shoulder, jaw) Pain Consistency: + other (multiple episodes) Maximum Pain Intensity: 0 Quality: + other (tightness) Associated symptoms: + other (Positive for feeling "foggy," being shaky, shoulder pain, neck pain, and jaw pain. Negative for diaphoresis, lightheadedness, leg swelling, fever, and vomiting.) The patient is an 84 year old male who presents to the emergency department with complaints of multiple episodes of chest tightness beginning this morning. The patient states that he woke up this morning and felt foggy. He notes that he became shaky while eating breakfast, and he reports that he then developed chest tightness. The patient states that his chest tightness radiated up into his shou lders, neck, and jaw. He notes that his tightness did not radiate down his arms. He reports that his symptoms lasted for 10 minutes before resolving. The patient states that he went to the [facility] after the episode, but he notes that he did not have any chest tightness while using the machines. He reports that he then had a breathing test at the hospital, and he states that he had another episode of chest tightness. He notes that he had a third episode of chest tightness during lunch, and he reports that this episode was worse than the first two. He denies any current chest tightness. He also denies any diaphoresis, lightheadedness, leg swelling, fever, and vomiting. The patient states that he had pneumonia a few weeks ago, but he notes that he does not have a previous history of heart problems. He reports that he is a former smoker, but he reports that he quit in 1969. Home Medications Home Medications Medication Instructions Recorded Confirmed Type amlodipine 5 mg PO QAM 02/28/19 11/21/19 History aspirin 325 mg PO Q OTHER DAY 02/28/19 11/21/19 History cholecalciferol (vitamin D3) 2,000 unit PO DAILY 02/28/19 11/21/19 History [Vitamin D3] sulfasalazine 1,000 mg PO BID 02/28/19 11/21/19 History triamterene-hydrochlorothiazid 1 tab PO Q OTHER DAY 02/28/19 11/21/19 History [Maxzide-25mg] clonidine HCl 0.1 mg tablet 0.1 mg PO HS #90 tab 05/02/19 11/21/19 Rx pravastatin 20 mg tablet 20 mg PO HS #90 tab 05/02/19 11/21/19 Rx lisinopril 20 mg tablet 20 mg PO QAM #90 tab 05/30/19 11/21/19 Rx gabapentin 300 mg capsule 300 mg PO BID #180 cap 09/26/19 11/21/19 Rx ascorbic acid (vitamin C) 1 g PO DAILY 11/21/19 11/21/19 History Allergies Allergy/AdvReac Type Severity Reaction Status Date / Time No Known Drug Allergies Allergy Unknown NONE Verified 11/21/19 15:34 Past Med/Surg History Medical History Carotid artery stenosis (Acute) NO CHANGES OVER LAST 3-4 CHECKS Enlarged prostate HX BX'S X 3 History of anesthesia reaction BLOATED, COULDN'T EAT, VOMITING - FOLLOWING LUMBAR FUSION ([facility] 2 YR AGO) - EXTENDED HOSPITAL STAY FOR Hypertension (Acute) Neuropathy WITH BALANCING PROBLEMS Pneumonia Polymyalgia rheumatica (Acute) 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 (Acute) fall/AUDIOLOGY VISIT...HEARING AIDE LEFT Tremor (Acute) Surgical History History of colonoscopy History of hernia surgery DOUBLE History of lumbar fusion WITH LAMINECTOMY History of lumbar laminectomy Family History Father Heart disease Hypertension Coronary arteriosclerosis Abdominal aortic aneurysm Mother Hypertension Stroke Sister Stroke Intracranial hemorrhage Family/Other Stroke Denies family history of Ovarian cancer Prostate cancer Diabetes Alzheimer disease Crohn's disease Dementia Depression Myocardial infarction Breast cancer Lung cancer Colorectal cancer Asthma Social History Preferred Language: Occitan Communication Ability: Effective Visual Impairment: Limited Hearing Ability: Use of Hearing Aid Dial Refinisher Required: No Beliefs That Will Affect Care: None marital status: Current Living Situation: Spouse current occupational status: retired Other Information That Helps Us Care for You: No Feels Safe at Home: Yes Safety Concerns: Feels Safe At This Time Smoking Status: Never smoker Tobacco Type: cigarettes ; Hx Alcohol Use: No Hx Substance Use: No Physical Activity Frequency: Does not Exercise Review of Systems See HPI for pertinent positives & negatives. and A total of 10 systems reviewed and were otherwise negative Physical Exam Vital Signs Vital Signs - 24 hr 11/21/19 14:03 11/21/19 14:10 11/21/19 14:45 Temperature 36.6 C Temperature Source Oral Pulse Rate 101 H 87 Pulse Rate [Left] Pulse Rate from SpO2 Sensor 88 Pulse Rhythm [Left] Respiratory Rate 16 26 H Respiratory Effort / Characteristics Respiratory Depth Respiratory Pattern Blood Pressure 134/63 116/61 Blood Pressure [Left Arm] Blood Pressure Mean 86 90 Blood Pressure Mean [Left Arm] Pulse Oximetry 96 95 Oxygen Delivery Method Room Air Room Air Sepsis Recent Fever Within 48 Hours No Sepsis New/Unexplained Change in Mental Status No Sepsis Action Taken by Nursing No Action Required 11/21/19 14:49 11/21/19 15:00 11/21/19 15:30 Temperature Temperature Source Pulse Rate 83 80 Pulse Rate [Left] 96 H Pulse Rate from SpO2 Sensor 84 80 Pulse Rhythm [Left] Regular Respiratory Rate 27 H 19 23 Respiratory Effort / Characteristics Non-Labored Respiratory Depth Normal Respiratory Pattern Regular Blood Pressure 129/59 L 140/59 L Blood Pressure [Left Arm] 116/61 Blood Pressure Mean 75 80 Blood Pressure Mean [Left Arm] 79 Pulse Oximetry 95 96 97 Oxygen Delivery Method Room Air Sepsis Recent Fever Within 48 Hours Sepsis New/Unexplained Change in Mental Status Sepsis Action Taken by Nursing 11/21/19 16:00 Temperature Temperature Source Pulse Rate 74 Pulse Rate [Left] Pulse Rate from SpO2 Sensor 74 Pulse Rhythm [Left] Respiratory Rate 21 Respiratory Effort / Characteristics Respiratory Depth Respiratory Pattern Blood Pressure 138/65 Blood Pressure [Left Arm] Blood Pressure Mean 101 Blood Pressure Mean [Left Arm] Pulse Oximetry 96 Oxygen Delivery Method Sepsis Recent Fever Within 48 Hours Sepsis New/Unexplained Change in Mental Status Sepsis Action Taken by Nursing Constitutional: Vital signs reviewed. Eyes: Pupils are equal round reactive to light. Conjunctiva are noninjected. ENT: Pharynx is clear without erythema or exudate. Mucous membranes are moist. Neck supple without meningeal signs. Respiratory: Clear to auscultation bilaterally. Breath sounds are equal glenn aterally. Cardiovascular: Regular rate and rhythm. No rubs or gallops. GI: Soft, nondistended and nontender. Bowel sounds are present. Musculoskeletal: No peripheral edema. No lower extremity tenderness. Integumentary: No cyanosis. Neurological: The patient is awake and alert. No focal deficits. Psychiatric: Normal affect. Course Course 1433: The patient was evaluated in room A12. A complete history and physical exam was performed. 1507: I rechecked the patient. I talked to him about his rest results. He is agreeable to hospitalization. He denies any current CP. 1508: Upon reevaluation, the patient is stable. I spoke with Dr. Vargas of the [facility] Hospitalist Service. The patient will be evaluated for further management. Consultations Consultation #1: I reviewed the patient's case with Dr. Vargas - Hospitalist, [facility]. She will evaluate the patient for further management. Time: 15:08 Administered Medications Clonidine HCl (Catapres) 0.1 mg PO HS NYLA Stop: 12/21/19 20:59 Last Admin: 11/21/19 20:20 Dose: 0.1 mg Documented by: [id number] Gabapentin (Neurontin) 300 mg PO BID NYLA Stop: 12/21/19 20:59 Last Admin: 11/21/19 20:20 Dose: 300 mg Documented by: [id number] Heparin Sodium (Porcine) (Heparin Sodium (Porcine)) 5,000 units SQ Q12 [facility]LA Stop: 12/21/19 20:59 Last Admin: 11/21/19 20:21 Dose: Not Given Documented by: [id number] Nitroglycerin (Nitro-Bid 2%) 1 inch EXT Q6 NYLA Stop: 12/21/19 17:59 Last Admin: 11/21/19 19:17 Dose: 1 inch Documented by: [id number] Pravastatin Sodium (Pravachol) 20 mg PO HS NYLA Stop: 12/21/19 20:59 Last Admin: 11/21/19 20:20 Dose: 20 mg Documented by: [id number] Sulfasalazine (Azulfidine) 1,000 mg PO BID NYLA Stop: 12/21/19 20:59 Last Admin: 11/21/19 20:20 Dose: 1,000 mg Documented by: [id number] Discontinued Medications Aspirin (Aspirin) 324 mg PO NOW STA Stop: 11/21/19 14:41 Last Admin: 11/21/19 14:48 Dose: 324 mg Documented by: [id number] Medical Decision Making Differential Diagnosis Differential diagnoses include: unstable angina, VA, GERD, pneumonia, and pleural effusion. Medical Records Attestation: I reviewed the patient's medical records. I did perform a limited focused review of portions of the patient's old chart on the electronic medical record. The patient has had no recent pertinent visits to this hospital. Home Medications Current Medication List: was personally reviewed by me Laboratory Data Attestation: I reviewed the patient's lab results. Result diagrams: 11/21/19 14:15 11/21/19 14:15 Lab Results 11/21/19 11/21/19 11/21/19 Range/Units 14:15 14:15 14:15 WBC 11.69 H (4.8-10.8) K/uL RBC 4.58 L (4.7-6.1) M/uL Hgb 14.9 (14.0-18.0) g/dL Hct 42.9 (42-52) % MCV 93.7 (80-100) fL MCH 32.5 (25-34) pg MCHC 34.7 (32-36) g/dL RDW Std Deviation 45.4 (36.4-46.3) fL RDW Coeff of Salomon 13.2 (11.5-14.5) % Plt Count 286 (130-400) K/uL MPV 8.8 (7.4-10.4) fL Immature Gran % (Auto) 0.3 % Neut % (Auto) 83.0 % Lymph % (Auto) 8.2 % [place]ra % (Auto) 8.2 % Eos % (Auto) 0.0 % Baso % (Auto) 0.3 % Immature Gran # (Auto) 0.03 H (0.00-0.02) K/uL Neut # (Auto) 9.71 H (1.4-6.5) K/uL Lymph # (Auto) 0.96 L (1.2-3.4) K/uL C[place]ra # (Auto) 0.96 H (0.11-0.59) K/uL Eos # (Auto) 0.00 (0-0.5) K/uL Baso # (Auto) 0.03 (0-0.2) K/uL PT 11.4 (9.0-12.0) Seconds INR 1.1 (0.9-1.1) APTT 28.5 (21.0-31.0) Seconds PTT Ratio 1.1 Sodium 131 L (136-145) mmol/L Potassium 3.8 (3.5-5.1) mmol/L Chloride 97 L (98-107) mmol/L Carbon Dioxide 22 (21-32) mmol/L Anion Gap 12.0 H (3-11) BUN 33 H (7-18) mg/dl Creatinine 1.86 H (0.6-1.4) mg/dl Est Cr Clr Drug Dosing 26.7 ml/min Est GFR ( Amer) 37.9 Est GFR (Non-Af Amer) 32.7 BUN/Creatinine Ratio 17.8 (10-20) Glucose 162 H (70-99) mg/dl Calcium 9.4 (8.5-10.1) mg/dl Total Bilirubin 0.4 (0.2-1) mg/dl AST 16 (15-37) U/L ALT 22 (12-78) U/L Alkaline Phosphatase 62 (45-117) U/L Total Creatine Kinase 124 (39-308) U/L CK-MB (CK-2) 3.5 (0.5-3.6) ng/ml CK/CKMB % Calc 2.8 (0-3.0) POC Troponin I (0-0.045) ng/ml Troponin I < 0.015 (0-0.045) ng/ml NT-Pro-B Natriuret Pep (0-1800) pg/ml Total Protein 7.0 (6.4-8.2) gm/dl Albumin 3.8 (3.4-5.0) gm/dl Globulin 3.2 (2.5-4.0) gm/dl Albumin/Globulin Ratio 1.2 (0.9-2) Lipase 150 (73-393) U/L TSH (0.300-4.500) uIu/ml 11/21/19 11/21/19 Range/Units 14:15 14:22 WBC (4.8-10.8) K/uL RBC (4.7-6.1) M/uL Hgb (14.0-18.0) g/dL Hct (42-52) % MCV (80-100) fL MCH (25-34) pg MCHC (32-36) g/dL RDW Std Deviation (36.4-46.3) fL RDW Coeff of Salomon (11.5-14.5) % Plt Count (130-400) K/uL MPV (7.4-10.4) fL Immature Gran % (Auto) % Neut % (Auto) % Lymph % (Auto) % [place] % (Auto) % Eos % (Auto) % Baso % (Auto) % Immature Gran # (Auto) (0.00-0.02) K/uL Neut # (Auto) (1.4-6.5) K/uL Lymph # (Auto) (1.2-3.4) K/uL Cidra # (Auto) (0.11-0.59) K/uL Eos # (Auto) (0-0.5) K/uL Baso # (Auto) (0-0.2) K/uL PT (9.0-12.0) Seconds INR (0.9-1.1) APTT (21.0-31.0) Seconds PTT Ratio Sodium (136-145) mmol/L Potassium (3.5-5.1) mmol/L Chloride (98-107) mmol/L Carbon Dioxide (21-32) mmol/L Anion Gap (3-11) BUN (7-18) mg/dl Creatinine (0.6-1.4) mg/dl Est Cr Clr Drug Dosing ml/min Est GFR ( Amer) Est GFR (Non-Af Amer) BUN/Creatinine Ratio (10-20) Glucose (70-99) mg/dl Calcium (8.5-10.1) mg/dl Total Bilirubin (0.2-1) mg/dl AST (15-37) U/L ALT (12-78) U/L Alkaline Phosphatase (45-117) U/L Total Creatine Kinase (39-308) U/L CK-MB (CK-2) (0.5-3.6) ng/ml CK/CKMB % Calc (0-3.0) POC Troponin I < 0.03 (0-0.045) ng/ml Troponin I (0-0.045) ng/ml NT-Pro-B Natriuret Pep 259 (0-1800) pg/ml Total Protein (6.4-8.2) gm/dl Albumin (3.4-5.0) gm/dl Globulin (2.5-4.0) gm/dl Albumin/Globulin Ratio (0.9-2) Lipase (73-393) U/L TSH 5.030 H (0.300-4.500) uIu/ml Imaging Data Radiologist's Impression: Radiology results as stated below per my review and the radiologist's interpretation: XR chest 1V portable CLINICAL HISTORY: 84 years-old Male presenting with Chest Pain. TECHNIQUE: Portable upright AP view of the chest was obtained. COMPARISON: 10/25/2019. FINDINGS: Atherosclerosis of the aortic arch. Cardiac silhouette normal in size. The right hilum is not significantly prominent on the current exam. Minimal left basilar opacities. No focal opacity at the right lung base. No pleural effusion or pneumothorax. Degenerative changes of the thoracic spine. Upper abdomen normal. IMPRESSION: 1. Resolution of prior right basilar opacity. Minimal left basilar opacities likely atelectasis or scarring. No convincing evidence of acute cardiopulmonary disease. ACT 112: Negative or not required by law. Electronically signed by: Eric Benítez M.D. 11/21/2019 2:23 PM ECG Data Attestation: I personally reviewed and interpreted this ECG as follows: Indication: + chest pain Rate (beats per minute): 94 Rhythm: + sinus rhythm ECG Intervals/blocks: + First degree AV block and + Left bundle branch block ECG Findings: + PVCs Comparison ECG Date: from (03/14/2019) Change: no significant change (Compared to prior, LBBB is old.) Additional Comments: No sgarbossa criteria for acute ischemia. Blood Pressure Blood Pressure Findings: Elevated blood pressure Blood Pressure Disposition: further management by hospitalist [facility] Narrative I did evaluate the patient as noted above. The patient is presenting with chest tightness rating into his jaw and arms. He has no known history of CAD. He is currently not having any symptoms. I did treat him with aspirin 324 mg p.o. IV access was established. The patient was placed on a continuous cafeteria monitor. I did order and personally review the patient's 12-lead EKG as described above. His twelve-lead EKG shows an old first-degree AV block and left bundle branch block without signs of acute ischemia per scarbossa criteria. I did order and personally reviewed the images of the patient's chest x-ray as described above. His chest x-ray shows resolution of his prior pneumonia. I did order and review the patient's blood work as noted in the electronic medical record. He has an elevated serum creatinine and BUN. He has mild hyponatremia. White count is slightly elevated as well. Troponin is negative. I did reassess the patient. I did discuss the test results with him. He is not having any chest pain at this time. I did recommend hospitalization for further care and evaluation and repeat cardiac biomarkers. I did discuss the case with the hospitalist and outpatient case manager. An order was placed for continuous cardiac monitoring due to history of chest pain with concern for ACS. The monitor shows a rate of 65 with sinus rhythm. Impression & Plan Chest pain, precordial, Hyponatremia, Elevated serum creatinine Discharge Plan Visit Data *Final* Discharge Date/Time: 11/21/19 17:02 Chief Complaint: Cardiac Assessment Stated Complaint: SOB,CHEST TIGHTNESS,JAW PAIN ED Provider: Spencer De La Garza Discharge Problem: Chest pain, precordial, Hyponatremia, Elevated serum creatinine Patient Disposition: Admitted As Inpatient Discharge Instructions Interventions: ED Discharge Assessment Last Done: 11/21/19 17:02 The destini's documentation has been prepared under my direction and personally reviewed by me in its entirety. I confirm that the note above accurately reflects all work, treatment, procedures, and medical decision making performed by me.
[2019-11-22] MEDS: NITROGLYCERIN 2% OINTMENT 30GM TUBE EXT SCH (05:26)
[2019-11-22 06:18] LABS: Estimated Average Glucose 97 mg/dl
[2019-11-22 07:04] LABS: Basophils # (auto) 0.03 K/uL (0-0.2); Basophils % (auto) 0.5 %; Eosinophils # (auto) 0.16 K/uL (0-0.5); Eosinophils % (auto) 2.7 %; Hematocrit (blood only) 39.1 % (42-52); Hemoglobin 13.4 g/dL (14.0-18.0); Immature Granulocytes # (auto) 0.01 K/uL (0.00-0.02); Immature Granulocytes % (auto) 0.2 %; Lymphocytes # (auto) 1.45 K/uL (1.2-3.4); Lymphocytes % (auto) 24.7 %; Mean Corpuscular Hemoglobin 31.5 pg (25-34); Mean Corpuscular Hgb Conc 34.3 g/dL (32-36); Mean Corpuscular Volume 91.8 fL (80-100); Mean Platelet Volume 8.8 fL (7.4-10.4); Monocytes % (auto) 13.6 %; Neutrophils # (auto) 3.43 K/uL (1.4-6.5); Neutrophils % (auto) 58.3 %; Platelet Count 219 K/uL (130-400); RDW Coefficient of Variation 13.2 % (11.5-14.5); RDW Standard Deviation 43.9 fL (36.4-46.3); Red Blood Count 4.26 M/uL (4.7-6.1); White Blood Count 5.88 K/uL (4.8-10.8)
[2019-11-22 07:40] LABS: Albumin Level 3.2 gm/dl (3.4-5.0); BUN Creatinine Ratio 23.2 (10-20); Calcium 8.9 mg/dl (8.5-10.1); Creatinine Clr Calc Pharmacy 37.1 ml/min; Est GFR (African American) 56.4; Est GFR (Non-African American) 48.6
[2019-11-22 07:43] LABS: Albumin Globulin Ratio 1.1 (0.9-2); Bilirubin,Total 0.6 mg/dl (0.2-1); T4 Free Thyroxine 1.16 ng/dl (0.8-1.6); Total Protein 6.2 gm/dl (6.4-8.2)
[2019-11-22] MEDS ORDERED: ALBUT/IPRATROP 3MG/0.5MG NEB 3 ML VIAL NEB ONE (08:30)
[2019-11-22] MEDS ORDERED: CHOLECALCIFEROL 1,000 UNITS 25 MCG TAB PO SCH (09:00)
[2019-11-22] MEDS ORDERED: ASCORBIC ACID 500 MG TAB PO SCH (09:00)
[2019-11-22] MEDS ORDERED: ASPIRIN 325 MG ECTAB PO SCH (09:00)
[2019-11-22] MEDS ORDERED: AMLODIPINE BESYLATE 5 MG TAB PO SCH (09:00)
[2019-11-22] MEDS ORDERED: lisinopriL 20 MG TAB PO SCH (09:00)
[2019-11-22] MEDS: sulfaSALAzine 500 MG TABLET PO SCH (09:23)
[2019-11-22] MEDS: HEPARIN SOD 5,000 UNIT/0.5 ML VIAL SQ SCH ×2 (09:24→09:57)
[2019-11-22] MEDS: GABAPENTIN 300 MG CAP PO SCH (09:24)
--- NOTE | 2019-11-22 09:30 | XRay Report ---
XR cervical spine 2 or 3V CLINICAL HISTORY: Neck pain. COMPARISON STUDY: Cervical spine 09/26/2016. FINDINGS: The cervical spine is visualized from C1 1 through the superior endplate of T1. Mild revers al the normal lordotic curvature, unchanged. There is 2 mm of retrolisthesis of C4-C5, unchanged. The re are severe disc space narrowing at C4-C5 and C5-C6. Moderate disc space narrowing at C3-C4 and C6- C7. There are small endplate osteophytes throughout the majority of the cervical spine. Prevertebral soft tissues and the C1-C2 interval are intact. No fractures within the cervical spine. Moderate face t degenerative changes throughout the cervical spine. IMPRESSION: 1. No fractures within the cervical spine. 2. No significant change in the moderate to severe degenerative disc disease and moderate facet osteo arthritis as described above. ACT 112: Negative or not required by law. Electronically signed by: Nhan Forrester M.D. 11/22/2019 9:29 AM
[2019-11-22] MEDS ORDERED: ATROPINE SULFATE 0.1 MG/ML 10ML SYR IV ONE (13:03)
[2019-11-22] MEDS ORDERED: METOPROLOL TARTRATE 1 MG/ML VIAL IV ONE (13:03)
[2019-11-22] MEDS ORDERED: DOBUTamine HCL 12.5 MG/ML 20 ML VIAL IV ONE (13:03)
--- NOTE | 2019-11-22 15:18 | XCELERA ---
[id number] \\[id number]\PDF_Reports\[id number]}___[id number]
--- NOTE | 2019-11-22 15:37 | Discharge Summary ---
Date of Service November 22, 2019 Admission HPI Per Admitting Provider The patient is an 84 year old male w/PMHx of HTN, hyperlipidemia, impaired fasting glucose, peripheral neuropathy, BPH who presents to the emergency department with complaints of three episodes of chest tightness beginning this morning. The patient states that he woke up this morning with left shoulder pain and he knew from the before that he has a rotator cuff injury. He notes that he became shaky while eating breakfast, and he reports that he then developed chest tightness. The patient states that his chest tightness radiated up into his shoulders, neck, and jaw. He notes that his tightness did not radiate down his arms. He reports that his symptoms lasted for 10 minutes before resolving. The patient states that he went to the [facility] after the episode, but he notes that he did not have any chest tightness while using the machines. He reports that he then had a breathing test at the hospital, and he states that he had another episode of chest tightness. He notes that he had a third episode of chest tight ness during lunch, and he reports that this episode was worse than the first two.He denies fever, chills, chest pain at the present time, sweating, syncope,near syncope, leg swelling, fever, and vomiting. The patient states that he had pneumonia a few weeks ago, but he notes that he does not have a previous history of heart problems. He reports that he is a former smoker, but he reports that he quit in 1969.Labs are reviewed:WBC 11.69,HgB14.9,Hct 42.9,Plt 286,Left shift 9.71,PT 11.4,INR 1.1,APTT 28.5, Na 131, K3.8, Cl 97, BUN 33, Cr 1.86 ( baseline 1.2-1.7), trop 0.015, TSH 5.030 elevated.Free T4 pending.CXR:Resolution of prior right basilar opacity. Minimal left basilar opacities likely atelectasis or scarring. No convincing evidence of acute cardiopulmonary disease.The decision was made to admit pt for chest pain atypical v acute coronary sy. Principal Diagnosis Atypical chest pain Discharge Exam Constitutional WD/WN, vitals as above Eyes + anicteric sclerae; normal pupil size ENMT external ear and nose normal, oropharynx normal Neck trachea midline, no thyromegaly Respiratory normal respiratory effort, lungs clear to auscultation Cardiovascular RRR, no murmur, no edema Gastrointestinal (Abdomen) normal bowel sounds, soft, nontender, no hepatosplenomegaly Musculoskeletal no cyanosis or clubbing, extremities motor strength 5/5 Skin no rashes, warm and dry Psychiatric A+Ox3, euthymic affect Lymphatic no cervical or axillary lymphadenopathy Discharge Data Allergies Allergy/AdvReac Type Severity Reaction Status Date / Time No Known Drug Allergies Allergy Unknown NONE Verified 11/21/19 15:34 Consultations 11/21/19 15:10 ED Decision to Admit Stat 11/21/19 18:16 Consult Cardiology Routine Hospital Course (1) Chest pain, precordial: Sal Stack is an 84 year old male were observed overnight at [facility] from November 20 to 2019 due to chest and jaw pain. Serial troponins negative, he was reviewed by cardiology and subsequent dobutamine stress test also negative therefore pain unlikely related to coronary artery disease. Given association with food I suspect this was most likely esophageal spasms. Nitroglycerin has been prescribed to take as needed if this occurs again which would treat both esophageal spasms or angina. Given recent pneumonia and subsequent wheezing with improvement with duoneb, he was prescribed albuterol whilst awaiting results of his recent PFTs and recommended he follows up with his PCP regarding these results not yet available. Cr also mildly elevated from baseline on elevated on admission (resolved overnight), with mild hyponatremia. Suspected due to HCTZ use with Maxzide. Recommended he follows up with his PCP regarding this and retest BMP in approximately 1 week. Kind regards, Dr Perry Noriega (2) Hyponatremia: (3) Elevated serum creatinine: (4) Dyslipidemia: (5) Cervical radiculopathy: (6) Hypertension: Total Time Total Time Spent Total Time Spent (In Minutes): 40 Total Time Includes: Examination of the Patient, Discharge Planning, Medication Reconciliation and Communication With Other Providers (Dr Keyes) Discharge Plan Discharge Items Patient Disposition: Home - Self-Care Reason For Visit: CHEST PAIN Discharge Diagnosis: Atypical chest pain Activity: Resume your previous activity Non-emergency contact: Primary Care Provider Call non-emergency contact if: you have any medication questions Follow-up/Referrals: Ryan Baxter MD [Physician] - 12/15/19 2:30 pm (Approximately 4 weeks. F/U appointment with Justin Fitzgerald on December 15, 2019 at 2:30 P.M.) Jm Romano MD [Primary Care Provider] - 11/28/19 2:00 pm (Ivanna Raines November 28, 2019 at 2:00 P.M.) Diet: Heart Healthy Ambulatory Orders: Basic Metabolic Panel (Routine) Timeframe: 1 Week Location: Determined by Patient Ordered By: Perry Guzman Attending Provider Instructions: You were observed overnight at [facility] from November 20 to 2019 due to chest and jaw pain. Reassuringly your heart enzymes and subsequent dobutamine stress test was negative therefore pain was unlikely related to coronary artery disease. Given association with food I suspect this was most likely esophageal spasms. Nitroglycerin has been prescribed to take as needed if this occurs again which would treat both esophageal spasms or angina. Given recent pneumonia and subsequent wheezing with improvement of breathing treatment while admitted you have been prescribed albuterol inhaler to take as needed for shortness of breath, chest tightness or wheezing. Please follow up with your primary care physician for ongoing management of this. Your kidney test was also elevated on admission (resolved overnight), in addition to your sodium being mildly low. Suspect this was due to starting Maxzide and recommend following up with your primary care physician regarding ongoing treatment of your hypertension with this medication. Ok to continue Maxzide prior to this appointment. Recommend repeating lab test in approximately 1 week. Kind regards, Dr Perry Noriega Pending Studies at Discharge: No Stand-Alone Forms: My [facility], Smoking Cessation Medications and DC Order Prescriptions: New nitroglycerin 0.4 mg tablet, sublingual 0.4 mg sublingual Q5M PRN (Reason: chest pain) Qty: 10 RF: 0 albuterol sulfate 90 mcg/actuation HFA aerosol inhaler 1 puffs INH Q6H PRN (Reason: shortness of breath or wheezing) Qty: 6.7 RF: 0 Continued clonidine HCl 0.1 mg tablet 0.1 mg PO HS Qty: 90 RF: 3 pravastatin 20 mg tablet 20 mg PO HS Qty: 90 RF: 3 lisinopril 20 mg tablet 20 mg PO QAM Qty: 90 RF: 3 gabapentin 300 mg capsule 300 mg PO BID Qty: 180 RF: 3 aspirin 325 mg Tablet 325 mg PO Q OTHER DAY RF: 0 amlodipine 5 mg Tablet 5 mg PO QAM RF: 0 triamterene-hydrochlorothiazid [Maxzide-25mg] 37.5-25 mg Tablet 1 tab PO Q OTHER DAY RF: 0 cholecalciferol (vitamin D3) [Vitamin D3] 2,000 unit Capsule 2,000 unit PO DAILY RF: 0 sulfasalazine 500 mg Tablet 1,000 mg PO BID RF: 0 ascorbic acid (vitamin C) 1,000 mg Tablet 1 g PO DAILY RF: 0 Discharge Orders: Discharge Order (Routine); Ordered 11/22/19 Ordered By: Perry Noriega Admission Data Admit Date/Time: 11/21/19 16:29 Attending Provider: Perry Noriega Admit Provider: Yehuda Vargas Primary Care Provider: Jm Romano Other Providers: Yehuda Vargas ; Jaiden Hernandez Other Interventions: Discharge Summary Assessment (RN) Last Done: 11/22/19 15:45 DC Date/Time DO NOT enter until pt leaves facility: 11/22/19 16:27 Coding Level of Care Code 02425 OBS Care - Discharge Diagnoses Chest pain, precordial R07.2 Hyponatremia E87.1 Elevated serum creatinine R79.89 Dyslipidemia E78.5 Cervical radiculopathy M54.12 Hypertension I10
--- NOTE | 2019-11-22 15:41 | Cardiology Consultation ---
Date of Consultation November 22, 2019 Assessment & Plan (1) Chest pain, precordial: Patient with known vascular disease (peripheral and carotid) admitted with chest pain with characteristics which could be consistent with angina. Given his chronic left bundle branch block, ECG was unhelpful. Fortunately, cardiac enzymes were negative x3, excluding acute cardiac event. Due to absence of a clear alternative explanation and his vascular risk factors, the patient underwent a dobutamine stress echocardiogram. No evidence of myocardial ischemia at 97% maximum predicted heart rate. Potential explanations for his symptoms include esophageal spasm (although he has not had any GI symptoms), thoracic musculature irritation/spasm (he has COPD and did have PFTs the morning of admission), exacerbation of cervical arthritis, or less likely coronary spasm without residual obstruction. In the absence of evidence for obstructive coronary artery disease, he can be discharged home and resume full physical activity. Although I do not usually recommend sublingual nitroglycerin for patients without a diagnosis of coronary artery disease (in part because they are often labeled as having coronary disease because they carry nitroglycerin), in this case did recommend nitroglycerin for potential e sophageal or coronary spasm, as well as peace of mind for this patient who asked the question what if this happens again? . Continue usual vasoactive medications for blood pressure control, statin for dyslipidemia, and aspirin for secondary prevention with known vascular disease. Thank you for this opportunity to participate in the care of this patient who I have been seeing for several decades. I can see him in follow-up in 1-2 months. (2) Hypertension: (3) Dyslipidemia: (4) Impaired fasting glucose: (5) Peripheral neuropathy: (6) Cervical radiculopathy: History of Present Illness Reason for Consultation: Chest pain Requesting Physician: Perry Noriega MD Attending Physician: Perry Noriega MD History of Present Illness 84-year-old man with HTN, dyslipidemia glucose intolerance, peripheral vascular disease, and moderate carotid stenosis but no known coronary artery disease for who was admitted 11/21/2019 with chest pain at rest. He describes an episode of bilateral shoulder and upper anterior chest pressure radiating to his neck and lasting for about 5 minutes before resolving without any intervention. He felt a mild sense of disorientation and a feeling of being ill at ease, but no other epiphenomenon. No change in symptoms with respiration or position. No palpitations, diaphoresis, presyncope, or syncope. After symptoms passed, he actually went to gym and lifted weights with no difficulties. However, he later had a second and third episode of the similar upper chest and shoulder discomfort radiating to his neck lasting about 5 minutes each time. These occurred later in the day and prompted a visit to the ER. Of note, he does have chronic lung disease and had undergone pulmonary function tests early the morning of his symptoms. At recent baseline, he has been physically active. Walking is somewhat limited by neuropathy but he notes no dyspnea on exertion or chest discomfort. He goes to the gym regularly and has had no exertional symptoms. At the time of my evaluation this morning, he had no complaints. Allergies Allergy/AdvReac Type Severity Reaction Status Date / Time No Known Drug Allergies Allergy Unknown NONE Verified 11/21/19 15:34 Home Medications Home Medications Medication Instructions Recorded Confirmed Type amlodipine 5 mg PO QAM 02/28/19 11/21/19 History aspirin 325 mg PO Q OTHER DAY 02/28/19 11/21/19 History cholecalciferol (vitamin D3) 2,000 unit PO DAILY 02/28/19 11/21/19 History [Vitamin D3] sulfasalazine 1,000 mg PO BID 02/28/19 11/21/19 History triamterene-hydrochlorothiazid 1 tab PO Q OTHER DAY 02/28/19 11/21/19 History [Maxzide-25mg] clonidine HCl 0.1 mg tablet 0.1 mg PO HS #90 tab 05/02/19 11/21/19 Rx pravastatin 20 mg tablet 20 mg PO HS #90 tab 05/02/19 11/21/19 Rx lisinopril 20 mg tablet 20 mg PO QAM #90 tab 05/30/19 11/21/19 Rx gabapentin 300 mg capsule 300 mg PO BID #180 cap 09/26/19 11/21/19 Rx ascorbic acid (vitamin C) 1 g PO DAILY 11/21/19 11/21/19 History albuterol sulfate 1 puffs INH Q6H PRN #6.7 gm 11/22/19 Rx nitroglycerin 0.4 mg SUBLINGUAL Q5M PRN #10 tab 11/22/19 Rx Patient History Medical History Carotid artery stenosis (Acute) NO CHANGES OVER LAST 3-4 CHECKS Enlarged prostate HX BX'S X 3 History of anesthesia reaction BLOATED, COULDN'T EAT, VOMITING - FOLLOWING LUMBAR FUSION ([facility] 2 YR AGO) - EXTENDED HOSPITAL STAY FOR Hypertension (Acute) Neuropathy WITH BALANCING PROBLEMS Pneumonia Polymyalgia rheumatica (Acute) 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 (Acute) FALL OF 2017/AUDIOLOGY VISIT...HEARING AIDE LEFT Tremor (Acute) Surgical History History of colonoscopy History of hernia surgery DOUBLE History of lumbar fusion WITH LAMINECTOMY History of lumbar laminectomy Family History Abdominal aortic aneurysm Father Heart disease Father Intracranial hemorrhage Sister Hypertension Father Mother Stroke Mother Sister Family/Other Coronary arteriosclerosis Father Denies family history of Ovarian cancer Prostate cancer Diabetes Alzheimer disease Crohn's disease Dementia Depression Myocardial infarction Breast cancer Lung cancer Colorectal cancer Asthma Social History Preferred Language: Croatian Communication Ability: Effective Visual Impairment: Limited Hearing Ability: Use of Hearing Aid Appraisal Specialist Required: No Beliefs That Will Affect Care: None marital status: Current Living Situation: Spouse current occupational status: retired Feels Safe at Home: Yes Smoking Status: Never smoker Tobacco Type: cigarettes ; Hx Alcohol Use: No Hx Substance Use: No Physical Activity Frequency: Does not Exercise Review of Systems Constitutional: no fever, no chills, no fatigue, no weight loss and no weight gain Eyes: no problem reported Ear, Nose, Mouth, Throat: no problem reported Respiratory: no cough and no dyspnea Cardiovascular: as per Subjective / HPI Gastrointestinal: no abdominal pain and no change in stools Musculoskeletal: + joint pain Integumentary: no rash and no new lesions Neurologic: + paresthesia; no falls and no syncope Psychiatric: no problem reported Hematologic / Lymphatic: no easy bleeding and no easy bruising Physical Exam Physical Exam: No distress. Skin: No unusual lesions or ecchymosis. HEENT: Unremarkable. Neck: Jugular venous pulse at the clavicle at 90, no carotid bruits. Lungs: Clear and equal breath sounds bilaterally. No wheezing or crackles. Cardiac: Regular rhythm with normal S1 and S 2. No murmur or gallop. Abdomen: Benign. Extremities: Nontender without edema. Diminished but palpable lower extremity pulses. Neurologic: Normal affect, nonfocal Results & Data ([facility]) Vital Signs (Past 12 Hours) Vital Signs Temp Pulse Pulse Pulse Resp BP Pulse Ox 11/22/19 15:00 56 L 11/22/19 11:48 97.7 F 69 18 148/66 H 94 11/22/19 09:27 89 16 94 11/22/19 07:03 97.7 F 59 L 18 137/74 96 11/22/19 04:28 98.4 F 58 L 17 100/51 L 95 Laboratory Results 11/21/19 11/22/19 11/22/19 18:38 00:32 06:49 Troponin I 0.018 0.033 LDL Cholesterol, Calc 55 11/22/19 06:49 Troponin I 0.021 LDL Cholesterol, Calc Diagnostic Findings ECG showed sinus rhythm with first-degree AV block and left bundle branch block. Chest x-ray was notable only for minimal left basilar opacity likely atelectasis or scarring. Resolution of prior right basilar opacity noted a month ago. Cervical Spine film showed moderate to severe degenerative disc disease and moderate facet osteoarthritis. PG Care Time/CCT Total # of Minutes Spent Total Time Spent with Patient: Total time spent is greater than 50% in coordination of care (as documented) at patient's floor/unit and/or counseling p atient: Coding Level of Care Code 30627 Initial Inpt Care Lvl 3 Diagnoses Chest pain, precordial R07.2 Hypertension I10 Dyslipidemia E78.5 Impaired fasting glucose R73.01 Peripheral neuropathy G62.9 Cervical radiculopathy M54.12
--- NOTE | 2019-11-22 16:29 | XCELERA ---
[id number] \\MCXCELIBE\PDF_Reports\[id number]}___[id number]
[2019-11-23] MEDS ORDERED: TRIAMTERENE/HCTZ 37.5/25MG TAB PO SCH (09:00)
== END 2019-11-22 16:27 | disposition home or self-care (01) ==
LOC: 2S 14:00 → ED 14:00 → SUATTDRO 16:29 → 2S 17:02